=== PATIENT | male | born 1945 | race Caucasian/White ===

== ENCOUNTER → 2017-11-05 | Outpatient (CLI) | payer BC ==
[~2017-11-05] MED LIST: CIPR1TAB11 PO; LEVO112T2 PO; NRN300 PO
--- NOTE | 2017-11-05 14:12 | DIAGNOSTIC IMAGING REPORT ---
ULTRASOUND GUIDED FINE NEEDLE ASPIRATION OF LEFT LOBE THYROID NODULE CLINICAL HISTORY: Thyroid nodule. COMPARISON STUDY: Thyroid ultrasound October 21, 2017. PROCEDURE: Sonography revealed the dominant 3.7 cm left lobe thyroid nodule which contains multiple calcifications. This was targeted for biopsy. The procedure, risks and benefits were discussed with the patient including the risk of bleeding, infection and injury to adjacent structures. The patient agreed to the procedure and informed written consent was obtained. The procedure was performed by Dr. Weiss following a timeout. Skin was prepped and draped in sterile fashion and local anesthesia was achieved with 1% lidocaine. Under direct ultrasound guidance, 4 25-gauge fine needle aspirations were performed. Borderline cellularity was noted. No additional passes were performed given 4 aspirations. Patient tolerated the procedure well and no immediate complications were evident. IMPRESSION: Ultrasound guided fine needle aspiration of a 3.7 cm left lobe thyroid nodule. Electronically signed by: Saqib Weiss M.D. 11/05/2017 2:11 PM Dictated Date/Time: 11/05/2017 2:09 PM
== END | disposition home or self-care (01) ==
LOC: C.ULTR 12:37
PROVIDERS: ATTEND Physician Assistant
DX: E04.1 Nontoxic single thyroid nodule (principal)

== ENCOUNTER 2019-07-19 05:47 | Inpatient (IN) ==
[2019-07-19 06:23] LABS: Hematocrit (blood only) 38.4 % (42-52); Hemoglobin 13.3 g/dL (14.0-18.0); Mean Corpuscular Hemoglobin 33.2 pg (25-34); Mean Corpuscular Hgb Conc 34.6 g/dL (32-36); Mean Corpuscular Volume 95.8 fL (80-100); RDW Coefficient of Variation 13.2 % (11.5-14.5); Red Blood Count 4.01 M/uL (4.7-6.1); White Blood Count 4.91 K/uL (4.8-10.8)
[2019-07-19 06:40] LABS: Albumin Level 3.6 gm/dl (3.4-5.0); Calcium 9.8 mg/dl (8.5-10.1); Creatinine Clr Calc Pharmacy 47.4 ml/min; Est GFR (African American) 58.8; Est GFR (Non-African American) 50.7; Potassium 3.7 mmol/L (3.5-5.1)
[2019-07-19 06:43] LABS: Albumin Globulin Ratio 1.1 (0.9-2); Bilirubin,Total 0.9 mg/dl (0.2-1); Globulin 3.4 gm/dl (2.5-4.0)
--- NOTE | 2019-07-19 06:50 | Emergency Department Note ---
Impression & Plan Seizures, Thrombocytopenia, Low back pain ED Provider Note Provider: Sivakumar Madison MD DATE OF SERVICE: 07/19/2019 CHIEF COMPLAINT: Seizure HISTORY OF PRESENT ILLNESS: Patient is a 73-year-old gentleman with a history of hypothyroidism and seizure on Keppra presenting via ambulance today from home. Evidently around 3 AM per the patient's he woke up confused which usually means a seizure so the patient's took him to bed. EMS reports the patient had 2 seizures lasting 2 to 3 minutes each about 10 minutes apart. He received a milligram of Ativan for EMS. Patient recently intubated and recently treated at [facility] for seizures and pancreatitis about a month ago. Patient is afebrile upon arrival with complaint of some very mild lower back pain. Patient's is present and describes that yesterday he seemed a little bit more off it had no specific complaints just had trouble following some plot lines of movies. Woke up at 330AM and again try to get ready for the day she directed the bed but he just sat there and turned on the TV. Around 4 AM noted the first seizure lasting about 3 minutes generalized tonic-clonic. About a 10 out of break and then another 3-minute seizure described as grand mal. Patient was confused after that given a second seizure called EMS. They prophylactically give a dose of Ativan and brought him here for further brandy luation. Patient here is somewhat somnolent will answer a few simple questions and is a 2019. Patient states he is in [facility] in the ICU. Patient unable to give a real history about tonight's events but believes he had a seizure. Does follow simple commands. Resting with his eyes closed. Complains again of a little bit of mild lower back pain. Patient's states that he often has some musculoskeletal complaints more often his lower extremities and his back after a seizure. States compliance with home medications. No nausea vomiting, fever, URI symptoms reported. states he was on the bed and did not fall to the ground. Reviewed recent telehealth notes and [facility] discharge summary. Had a reportedly therapeutic Keppra level several weeks ago. Evidently attributed breakthrough seizures last months to poor absorption due to possible chronic pancreatitis did have some slight lipase elevation and CT findings of chronic pancreatic changes. REVIEW OF SYSTEMS: A total of 10 review of systems was obtained and negative except as stated above in the HPI. PAST MEDICAL HISTORY: As noted above MEDICATIONS: Reviewed medication list and includes Keppra, Creon, Synthroid SOCIAL HISTORY: Lives at home with , no drug use reported PHYSICAL EXAM: GENERAL: Patient resting on stretcher with eyes closed opens to verbal command Head: normocephalic and atraumatic EYES: No injection, discharge or icterus. PERRL, EOMI. NECK: Trachea midline. Supple. ENT: Mucous membranes pink and moist. Pharynx without erythema or exudate. No tongue trauma noted. LUNGS: Airway patent. No retractions. Breath sounds clear HEART: Regular rate and rhythm. No chest wall tenderness ABDOMEN: Soft and non-tender, without guarding or rebound. BACK: No midline tenderness, minimal lower back tenderness. No bilateral flank tenderness. SKIN: Acyanotic, warm, dry, without rashes EXTREMITIES: Without swelling, tenderness or deformity NEUROLOGICAL: Moving all extremities. Oriented to person and time minimally to events but not oriented to place. Speech not slurred but slow in nature. EK bpm normal sinus rhythm. No PVCs. No acute ST segment elevation or depression. Normal QTC. CONTINUOUS CARDIAC MONITORING: was ordered and showed a heart rate of 66 bpm in normal sinus rhythm Patient's hypertension was referred to the [facility] COURSE: 629 Patient was first seen and H&P performed. 804 Patient reassessed and updated. Patient was more awake at this time. Will discuss with [facility] neurology on-call. 08 discussed the patient's case with Dr. Ballesteros [facility] neurology. An extensive discussion he said it the patient felt comfortable going home he recommends starting him on Vimpat given that he is pretty much maximized his Keppra dosing at this point. 08 discussed with patient and his both our findings here today as well as discussion with neurology. Patient is quite tired and has difficulty of his eyes open during the exam. Answers questions slowly but appropriately. In discussion with them they were agreeable to start a new medication we given his morning dose of Keppra. Discussed with him options of going home versus further observation here and given his recent history and the fact that he remains "quite torres "opted towards further observation here in the hospital on this new medication. 09 discussed the case with Dr. Moreno of the [facility] Hospitalist service will evaluate the patient for further inpatient care. 1035 Patient resting in room awaiting inpatient room. Patient's laboratory studies and imaging reviewed. Differential includes Epilepsy, infection, hypoglycemia, electrolyte abnormalities, cardiac sources, intracerebral event, trauma, toxicologic, neurologic, syncope, as well as other pathologies. IMPRESSION/MEDICAL DECISION MAKING: Patient's presentation concerning for recurrent seizures unsure of exact precipitating event. According to was a bit off yesterday and particularly in the middle of the night often harbingers of his seizures. His compliance with home medications reported. Recent outpatient neurology telehealth visit. Patient did receive some Ativan but does seem quite sedate here. Moving all extremities lower suspicion for stroke given that he still sedate CT of the head was completed. Basic labs are complete as well as EKG. No leukocytosis or feve r reported not meningitic and I doubt this is acute [employer] infection. Chest x-ray without acute findings for pneumonia. Complains of little bit of lower back pain likely musculoskeletal with a benign abdomen. Lipase was checked given his recent history as well as basic laboratory studies again without significant findings. EKG without significant findings. Not acutely hypoxic here. Laboratory studies likely showed no leukocytosis and borderline anemia. Platelets are notably diminished at 86 and previous value in May was 115. No significant electrolyte abnormality. Renal function at baseline. No evidence of rhabdomyolysis. No evidence of hepatitis or biliary obstruction. Negative t roponin. Lipase is noted to be elevated 867. This value is less than May 25 when it was 1800. Given this finding in addition to a CT of the head a CT the abdomen pelvis was completed to evaluate his back pain and for any evidence of acute pancreatitis. Chronic pancreatic changes are noted on the CT without other acute significant findings. CT the head without acute pathology. Patient was reevaluated and did have improvement his mental status more awake. states he seemed pretty much back to baseline. Does not report any recent diarrheal issues and states he is been doing well on the Creon. Still complaining of some lower back discomfort. Discussed with [facility] neurology on-call. Recommendations for Vimpat load and then maintenance. Discussed with the patient options of going home on this versus continued observation here in the hospital. Patient does still seem fatigued and states he feels "quite torres "and will proceed with observation here. Given some Tylenol for his lower back discomfort. DIAGNOSIS: seizures, thrombocytopenia, lower back pain DISPOSITION: Hospitalist will evaluate Patient was agreeable with this plan. Past Med/Surg History Social History Preferred Language: Persian Communication Ability: Impaired Communication Ability Comment: alert to person, time, at bedside, some confusion [place] Required: No Beliefs That Will Affect Care: None Current Living Situation: Spouse Other Information That Helps Us Care for You: No Feels Safe at Home: Yes Safety Concerns: Feels Safe At This Time Smoking Status: Never smoker Do You Dip or Chew Tobacco: No ; Second Hand Exposure: No ; Tobacco Cessation Education Requested by Patient: No Hx Alcohol Use: No Hx Substance Use: No Allergies Allergies Allergy/AdvReac Type Severity Reaction Status Date / Time No Known Allergies Allergy Verified 07/19/19 06:28 Home Meds Home Medications Medication Instructions Recorded Confirmed levetiracetam 1,500 mg PO BID 05/26/19 07/19/19 levothyroxine 88 mcg PO DAILY 05/26/19 07/19/19 lactobacillus combination no.4 3,000 mmu cells PO DAILY 07/19/19 07/19/19 [Probiotic] [id number] [Creon] 1 cap PO TID 07/19/19 07/19/19 Results & Data (ED) Vital Signs Vital Signs - 24 hr 07/19/19 06:10 07/19/19 07:30 07/19/19 08:50 Temperature 36.4 C L Temperature Source Oral Pulse Rate 76 Pulse Rate [Apical] 65 65 Pulse Rhythm [Apical] Regular Regular Pulse Strength [Apical] Normal Normal Respiratory Rate 18 18 18 Respiratory Effort / Characteristics Non-Labored Spontaneous Non-Labored Spontaneous Respiratory Depth Normal Normal Respiratory Pattern Regular Regular Blood Pressure 124/66 Blood Pressure [Right Arm] 106/60 114/69 Blood Pressure Mean 85 Blood Pressure Mean [Right Arm] 75 84 Blood Pressure Position [Right Arm] Lying Sitting Pulse Oximetry 96 100 100 Oxygen Delivery Method Room Air Room Air Room Air Sepsis Recent Fever Within 48 Hours No Sepsis Action Taken by Nursing No Action Required 07/19/19 10:07 Temperature Temperature Source Pulse Rate Pulse Rate [Apical] 62 Pulse Rhythm [Apical] Regular Pulse Strength [Apical] Normal Respiratory Rate 18 Respiratory Effort / Characteristics Non-Labored Spontaneous Respiratory Depth Normal Respiratory Pattern Regular Blood Pressure Blood Pressure [Right Arm] 112/66 Blood Pressure Mean Blood Pressure Mean [Right Arm] 81 Blood Pressure Position [Right Arm] Sitting Pulse Oximetry 100 Oxygen Delivery Method Room Air Sepsis Recent Fever Within 48 Hours Sepsis Action Taken by Nursing Laboratory Data Result diagrams: 07/19/19 06:05 07/19/19 06:05 Lab Results 07/19/19 07/19/19 07/19/19 Range/Units 06:05 06:05 06:05 WBC 4.91 (4.8-10.8) K/uL RBC 4.01 L (4.7-6.1) M/uL Hgb 13.3 L (14.0-18.0) g/dL Hct 38.4 L (42-52) % MCV 95.8 (80-100) fL MCH 33.2 (25-34) pg MCHC 34.6 (32-36) g/dL RDW Std Deviation 46.0 (36.4-46.3) fL RDW Coeff of Estephania 13.2 (11.5-14.5) % Plt Count 86 L (130-400) K/uL MPV 11.1 H (7.4-10.4) fL Immature Gran % (Auto) 0.0 % Neut % (Auto) 84.1 % Lymph % (Auto) 10.0 % Sandoval % (Auto) 4.5 % Eos % (Auto) 1.2 % Baso % (Auto) 0.2 % Immature Gran # (Auto) 0.00 (0.00-0.02) K/uL Neut # (Auto) 4.13 (1.4-6.5) K/uL Lymph # (Auto) 0.49 L (1.2-3.4) K/uL Sandoval # (Auto) 0.22 (0.11-0.59) K/uL Eos # (Auto) 0.06 (0-0.5) K/uL Baso # (Auto) 0.01 (0-0.2) K/uL Platelet Estimate Decreased L (Normal) Sodium 141 (136-145) mmol/L Potassium 3.7 (3.5-5.1) mmol/L Chloride 108 H (98-107) mmol/L Carbon Dioxide 26 (21-32) mmol/L Anion Gap 7.0 (3-11) BUN 18 (7-18) mg/dl Creatinine 1.38 (0.6-1.4) mg/dl Est Cr Clr Drug Dosing 47.4 ml/min Est GFR ( Amer) 58.8 Est GFR (Non-Af Amer) 50.7 BUN/Creatinine Ratio 13.0 (10-20) Glucose 120 H (70-99) mg/dl Calcium 9.8 (8.5-10.1) mg/dl Total Bilirubin 0.9 (0.2-1) mg/dl AST 21 (15-37) U/L ALT 24 (12-78) U/L Alkaline Phosphatase 84 (45-117) U/L Total Creatine Kinase (39-308) U/L Troponin I < 0.015 (0-0.045) ng/ml Total Protein 7.0 (6.4-8.2) gm/dl Albumin 3.6 (3.4-5.0) gm/dl Globulin 3.4 (2.5-4.0) gm/dl Albumin/Globulin Ratio 1.1 (0.9-2) Lipase 867 H (73-393) U/L Urine Color Urine Appearance (Clear) Urine pH (4.5-7.5) Ur Specific [place] (1.000-1.030) Urine Protein (Negative) Urine Glucose (UA) (Negative) Urine Ketones (Negative) Urine Blood (Negative) Urine Nitrite (Negative) Urine Bilirubin (Negative) Urine Urobilinogen (Negative) Ur Leukocyte Esterase (Negative) Urine WBC (Auto) (0-5) /hpf Urine RBC (Auto) (0-4) /hpf U Hyaline Cast (Auto) (0-5) /lpf U Epithel Cells (Auto) (0-5) /lpf Urine Bacteria (Auto) (Negative) 07/19/19 07/19/19 Range/Units 06:05 07:50 WBC (4.8-10.8) K/uL RBC (4.7-6.1) M/uL Hgb (14.0-18.0) g/dL Hct (42-52) % MCV (80-100) fL MCH (25-34) pg MCHC (32-36) g/dL RDW Std Deviation (36.4-46.3) fL RDW Coeff of Estephania (11.5-14.5) % Plt Count (130-400) K/uL MPV (7.4-10.4) fL Immature Gran % (Auto) % Neut % (Auto) % Lymph % (Auto) % Sandoval % (Auto) % Eos % (Auto) % Baso % (Auto) % Immature Gran # (Auto) (0.00-0.02) K/uL Neut # (Auto) (1.4-6.5) K/uL Lymph # (Auto) (1.2-3.4) K/uL Sandoval # (Auto) (0.11-0.59) K/uL Eos # (Auto) (0-0.5) K/uL Baso # (Auto) (0-0.2) K/uL Platelet Estimate (Normal) Sodium (136-145) mmol/L Potassium (3.5-5.1) mmol/L Chloride (98-107) mmol/L Carbon Dioxide (21-32) mmol/L Anion Gap (3-11) BUN (7-18) mg/dl Creatinine (0.6-1.4) mg/dl Est Cr Clr Drug Dosing ml/min Est GFR ( Amer) Est GFR (Non-Af Amer) BUN/Creatinine Ratio (10-20) Glucose (70-99) mg/dl Calcium (8.5-10.1) mg/dl Total Bilirubin (0.2-1) mg/dl AST (15-37) U/L ALT (12-78) U/L Alkaline Phosphatase (45-117) U/L Total Creatine Kinase 82 (39-308) U/L Troponin I (0-0.045) ng/ml Total Protein (6.4-8.2) gm/dl Albumin (3.4-5.0) gm/dl Globulin (2.5-4.0) gm/dl Albumin/Globulin Ratio (0.9-2) Lipase (73-393) U/L Urine Color Yellow Urine Appearance Clear (Clear) Urine pH 5.5 (4.5-7.5) Ur Specific [place] 1.017 (1.000-1.030) Urine Protein Trace H (Negative) Urine Glucose (UA) Negative (Negative) Urine Ketones Negative (Negative) Urine Blood Negative (Negative) Urine Nitrite Negative (Negative) Urine Bilirubin Negative (Negative) Urine Urobilinogen Negative (Negative) Ur Leukocyte Esterase Negative (Negative) Urine WBC (Auto) 1-5 (0-5) /hpf Urine RBC (Auto) 0-4 (0-4) /hpf U Hyaline Cast (Auto) 1-5 (0-5) /lpf U Epithel Cells (Auto) 0-5 (0-5) /lpf Urine Bacteria (Auto) Negative (Negative) Administered Medications Ioversol (Optiray 320 100ml) 93 ml IV ONCE PRN PRN Reason: Interaction Checking Stop: 07/23/19 07:35 Last Admin: 07/19/19 07:37 Dose: 93 ml Documented by: [id number] Discontinued Medications Acetaminophen (Tylenol) 1,000 mg PO NOW STA Stop: 07/19/19 08:34 Last Admin: 07/19/19 08:56 Dose: 1,000 mg Documented by: [id number] Lacosamide 200 mg/ Sodium (Chloride) 70 mls @ 140 mls/hr IV ONCE ONE Stop: 07/19/19 08:35 Last Admin: 07/19/19 08:56 Dose: 140 mls/hr Documented by: [id number] Levetiracetam (Keppra) 1,500 mg PO ONE ONE Stop: 07/19/19 08:34 Last Admin: 07/19/19 08:57 Dose: 1,500 mg Documented by: [id number] Discharge Plan Visit Data Chief Complaint: Seizure Stated Complaint: Seizure ED Provider: Sivakumar Madison Discharge Problem: Seizures, Thrombocytopenia, Low back pain Forms Stand Alone Forms: [facility] Prescriptions Prescriptions: No Action Creon 24,000-76,000 -120,000 unit Capsule,Delayed Release(Dr/Ec) 1 cap PO TID RF: 0 Probiotic 3 billion cell Capsule 3,000 mmu cells PO DAILY RF: 0 levothyroxine 88 mcg tablet 88 mcg PO DAILY RF: 0 levetiracetam 1,000 mg tablet 1,500 mg PO BID RF: 0 Discharge Problem: Low back pain Qualifiers: Chronicity: acute Back pain laterality: bilateral Sciatica presence: without sciatica Qualified Code(s): M54.5 - Low back pain
[2019-07-19 06:54] LABS: Mean Platelet Volume 11.1 fL (7.4-10.4); Platelet Count 86 K/uL (130-400)
[2019-07-19 06:55] LABS: Basophils # (auto) 0.01 K/uL (0-0.2); Basophils % (auto) 0.2 %; Eosinophils # (auto) 0.06 K/uL (0-0.5); Eosinophils % (auto) 1.2 %; Lymphocytes # (auto) 0.49 K/uL (1.2-3.4); Monocytes # (auto) 0.22 K/uL (0.11-0.59); Monocytes % (auto) 4.5 %; Neutrophils # (auto) 4.13 K/uL (1.4-6.5); Neutrophils % (auto) 84.1 %; Platelet Estimate Decreased (Normal)
--- NOTE | 2019-07-19 06:58 | XRay Report ---
XR chest 1V portable CLINICAL HISTORY: seizure COMPARISON STUDY: Chest radiograph June 02, 2019. FINDINGS: Lung volumes are normal. Lungs are clear. There is no pneumothorax or pleural effusion. Car diac size is normal. Mediastinal contours are normal. There is no evidence for pulmonary edema. IMPRESSION: No acute cardiopulmonary findings. ACT 112: Negative or not required by law. Electronically signed by: Saqib Weiss M.D. 07/19/2019 6:57 AM
[2019-07-19 07:00] LABS: Lipase 867 U/L (73-393); Troponin I < 0.015 ng/ml (0-0.045)
[2019-07-19] MEDS ORDERED: IOVERSOL 100ml IV PRN (07:36)
--- NOTE | 2019-07-19 07:44 | CT Scan Report ---
CT OF THE HEAD WITHOUT CONTRAST CLINICAL HISTORY: seizure, confusion COMPARISON STUDY: Head CT and CTA of the head June 02, 2019. TECHNIQUE: Helical axial images of the head were obtained without IV contrast. Automated exposure con trol was utilized for the study. A dose lowering technique was utilized adhering to the principles o f ALARA. FINDINGS: No acute intracranial hemorrhage, midline shift or mass effect is present. The ventricular system is unremarkable. The basilar cisterns are patent. White matter hypodensities are unchanged and suggest small vessel disease. No extra-axial collections are present. There are no findings to sugge st acute dural sinus thrombosis or acute territorial infarct. No significant calvarial abnormalities are present. Visualized portions of the sinuses and mastoid air cells are clear. IMPRESSION: No acute intracranial findings. ACT 112: Negative or not required by law. Electronically signed by: Saqib Weiss M.D. 07/19/2019 7:43 AM
--- NOTE | 2019-07-19 08:01 | CT Scan Report ---
CT OF THE ABDOMEN AND PELVIS WITH CONTRAST CLINICAL HISTORY: elevated lipase, seizure, low back pain COMPARISON STUDY: CT of the abdomen and pelvis May 26, 2019. TECHNIQUE: Following IV administration of 93 mL of Optiray-320, axial images of the abdomen and pelvi s were obtained from the lung bases to the proximal femurs. Images were reviewed in the axial, sagitt al, and coronal planes. IV contrast was administered without complication. Automated exposure contro l was utilized for the study. A dose lowering technique was utilized adhering to the principles of A RIMMA. CT DOSE: 1192.48 mGy.cm FINDINGS: This exam is moderately compromised by motion artifact. Lung bases are unremarkable. No pne umatosis, free air or portal venous gas is present. Mild biliary ductal dilatation is likely related to previous cholecystectomy. No hepatic lesions are present. There is mild splenomegaly. The adrenal glands and kidneys are unremarkable. Numerous pancreatic parenchymal calcifications are noted. No per ipancreatic infiltration or fluid is noted although sensitivity is diminished on this unenhanced exam . A few cystic foci within the pancreatic head measure up to 1.6 cm. There is no definite pancreatic ductal dilatation. There is no evidence for a bowel obstruction. A moderate amount stool is noted wit hin the colon. No ascites is present. No lymphadenopathy. Prostate is moderately enlarged. No acute l umbar spine or pelvic fracture is identified. IMPRESSION: 1. Trace pelvic ascites. Exam mildly compromised by motion artifact. 2. Pancreatic parenchymal calcifications suggestive of chronic pancreatitis. No peripancreatic infilt ration or fluid collections. A few cystic foci within the pancreatic head may reflect dilated side br anches or side branch IPMNs. 3. No bowel obstruction. 4. Mild splenomegaly. ACT 112: Negative or not required by law. Electronically signed by: Saqib Weiss M.D. 07/19/2019 8:00 AM
[2019-07-19 08:02] LABS: Appearance Urine Clear (Clear); Bacteria Urine Automated Negative (Negative); Bilirubin Urine Negative (Negative); Blood Urine Negative (Negative); Color Urine Yellow; Epithelial Cell Urine Auto 0-5 /lpf (0-5); Glucose Urine UA Negative (Negative); Ketones Urine Negative (Negative); Leukocyte Esterase Urine Negative (Negative); Nitrite Urine Negative (Negative); Protein Urine Trace (Negative); RBC Urine Automated 0-4 /hpf (0-4); Specific Gravity Urine 1.017 (1.000-1.030); Urobilinogen Urine Negative (Negative); pH Urine 5.5 (4.5-7.5)
[2019-07-19] MEDS ORDERED: ACETAMINOPHEN 500 MG TAB PO STA (08:33)
[2019-07-19] MEDS ORDERED: levETIRAcetam 500 MG TAB PO ONE (08:33)
[2019-07-19] MEDS ORDERED: LACOSAMIDE 200 MG in SODIUM CHLORIDE 0.9% 50 ML IV ONE (08:34)
--- NOTE | 2019-07-19 09:38 | History & Physical Report ---
Date of Service July 19, 2019 Assessment & Plan (1) Seizures: Breakthrough seizures H/O seizure disorder CT head:No acute intracranial findings. Keppra levels pending Received a loading dose of Vimpat in ED Continue Keppra 1500 mg twice a day Start IV Vimpat 100 mg twice a day Nephrology consulted Fall, aspiration, seizure precautions IV Ativan PRN for seizures Chronic thrombocytopenia Unclear etiology Splenomegaly noted on CT ABD No bleeding issues Monitor platelets Chronic pancreatitis Chronic diarrhea No signs of acute pancreatitis on CT Continue Creon Follows FODMAP diet Plan for endoscopy in August as outpatient Elevate Lactate Levels Likely secondary to seizure No obvious source of infection Levels normalized with IV fluids CKD III Cr at baseline Monitor renal function Avoid nephrotoxic agents as able Hypothyroidism: Continue Levothyroxine Obstructive sleep apnea Continue CPAP at bedtime H/O memory loss/mild neurocognitive disorder As per records Plan to get neurocognitive testing as outpatient DVT Px: Heparin SQ Code Status Full Code Disposition Plan to discharge home when stable History of Present Illness Chief Complaint: Seizure Primary Care Provider: Eliazar Falcon DO Patient is a 73-year-old male with history of seizure disorder, CKD III, chronic pancreatitis, hypothyroidism, obstructive sleep apnea on CPAP, H/O memory loss/mild neurocognitive disorder and other problems presents with history of altered mental status. Most of the history is obtained from patient's , ER physician and old records. Patient was noted to be transiently confused yesterday while watching TV. Today morning at around 3 AM, patient woke up confused and his noted him to have seizure-like activity which lasted for about 3 minutes. Patient lost consciousness after the episode as per his . She noticed him to have a another seizure after 10 minutes which again lasted for about 3 minutes. Patient was noted to be shaking all his extremities during the episodes. He did not have urinary incontinence. No known history of fall, head trauma, tongue bite, frothing, fever, chills, chest pain, shortness of breath, dizziness, nausea, abdominal pain, headache, change in vision. Family informs that patient missed his Keppra morning dose 3 days ago but otherwise is complaint with medications. Patient did report to have mild lower back pain after the episode and was and was repeating words as per family. Patient received a dose of Ativan given by EMS in route to the hospital. While in ED patient is drowsy but was able to answer questions appropriately. He denied any focal weakness, numbness, dizziness, headache, change in vision and is oriented. He was recently transferred from [facility] to [facility] for management of status epilepticus. Patient's Keppra dose was increased to 1500 mg twice a day as he was thought to have poor absorption from chronic diarrhea. Patient's informs that his diarrhea improved after being started on Creon for chronic pancreatitis. Patient received Keppra and a loading dose of Vimpat while in ED. Allergies Allergy/AdvReac Type Severity Reaction Status Date / Time No Known Allergies Allergy Verified 07/19/19 06:28 Home Medications Home Medications Medication Instructions Recorded Confirmed Type levetiracetam 1,500 mg PO BID 05/26/19 07/19/19 History levothyroxine 88 mcg PO DAILY 05/26/19 07/19/19 History lactobacillus combination no.4 3,000 mmu cells PO DAILY 07/19/19 07/19/19 History [Probiotic] [id number] [Creon] 1 cap PO TID 07/19/19 07/19/19 History Past Med/Surg History Medical History Cholecystectomy planned Family history non-contributory Seizure (Resolved) Thrombocytopenia (Acute) UTI (urinary tract infection) (Acute) Surgical History History of cholecystectomy (Resolved) Family History Mother ALS (amyotrophic lateral sclerosis) Social History Preferred Language: Wallisian Communication Ability: Impaired Communication Ability Comment: alert to person, time, at bedside, some confusion 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 Beliefs That Will Affect Care: None Current Living Situation: Spouse Other Information That Helps Us Care for You: No Feels Safe at Home: Yes Safety Concerns: Feels Safe At This Time Smoking Status: Never smoker Do You Dip or Chew Tobacco: No ; Second Hand Exposure: No ; Tobacco Cessation Education Requested by Patient: No Hx Alcohol Use: No Hx Substance Use: No Review of Systems Review of Systems: All systems reviewed & are unremarkable except as noted in HPI & below Physical Exam Physical Exam: Physical Exam: Vitals signs as noted above General Appearance:Moderately built and nourished, no apparent distress Head: normocephalic, Atraumatic Eyes: normal inspection, EOMI Neck: supple, Trachea midline Respiratory/Chest: Normal breath sounds, CTA, No accessory muscle use Cardiovascular: S1, S2, No murmur Abdomen/GI:Soft, Non tender, Bowel sounds present Extremities/Musculoskelatal:normal inspection, no edema Neurologic/Psych:grossly no focal neurological deficits, drowsy, oriented Skin: normal color, warm Results & Data Results & Data ([facility]) Vital Signs (Past 12 Hours) Vital Signs Temp Pulse Pulse Resp BP BP Pulse Ox 07/19/19 07:30 65 18 106/60 100 07/19/19 06:10 36.4 C L 76 18 124/66 96 Laboratory Results Short CBC 07/19/19 Range/Units 06:05 WBC 4.91 (4.8-10.8) K/uL Hgb 13.3 L (14.0-18.0) g/dL Hct 38.4 L (42-52) % Plt Count 86 L (130-400) K/uL BMP 07/19/19 06:05 Sodium 141 Potassium 3.7 Chloride 108 H Carbon Dioxide 26 BUN 18 Creatinine 1.38 Glucose 120 H Calcium 9.8 Cardiac Enzymes 07/19/19 07/19/19 Range/Units 06:05 06:05 Total Creatine Kinase 82 (39-308) U/L Troponin I < 0.015 (0-0.045) ng/ml Liver Function 07/19/19 Range/Units 06:05 Total Bilirubin 0.9 (0.2-1) mg/dl AST 21 (15-37) U/L ALT 24 (12-78) U/L Alkaline Phosphatase 84 (45-117) U/L Albumin 3.6 (3.4-5.0) gm/dl Urine 07/19/19 Range/Units 07:50 Urine Color Yellow Urine Appearance Clear (Clear) Urine pH 5.5 (4.5-7.5) Ur Specific [place] 1.017 (1.000-1.030) Urine Protein Trace H (Negative) Urine Glucose (UA) Negative (Negative) Diagnostic Findings CT ABD: 1. Trace pelvic ascites. Exam mildly compromised by motion artifact. 2. Pancreatic parenchymal calcifications suggestive of chronic pancreatitis. No peripancreatic infiltration or fluid collections. A few cystic foci within the pancreatic head may reflect dilated side branches or side branch IPMNs. 3. No bowel obstruction. 4. Mild splenomegaly. Head CT: No acute intracranial findings. Medications Administered Home Medications Medication Instructions Recorded Confirmed levetiracetam 1,500 mg PO BID 05/26/19 07/19/19 levothyroxine 88 mcg PO DAILY 05/26/19 07/19/19 lactobacillus combination no.4 3,000 mmu cells PO DAILY 07/19/19 07/19/19 [Probiotic] [id number]-[id number] [Creon] 1 cap PO TID 07/19/19 07/19/19 ECG Additional Comments: EKG:NSR, QTc 425. No significant change from prior EKG.
[2019-07-19] MEDS ORDERED: NSS + 20MEQ KCL 20 MEQ/1,000 ML BAG IV ONE (11:25)
[2019-07-19] MEDS ORDERED: ACETAMINOPHEN 325 MG TAB PO PRN (11:25)
[2019-07-19] MEDS ORDERED: LORazepam 1 MG/2 ML VIAL IV PRN (11:25)
[2019-07-19] MEDS ORDERED: ONDANSETRON INJ 2 MG/ML 2 ML VIAL IV PRN (11:25)
[2019-07-19] MEDS: LACTOBACILLUS ACIDOPHILUS (FLORANEX) TAB PO SCH ×2 (12:18→16:58)
[2019-07-19] MEDS: PANCREAZE (LIPASE 10,500U) CAP PO SCH ×2 (12:18→16:58)
--- NOTE | 2019-07-19 13:55 | Neurology Consultation ---
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 CT head noncontrast was negative. CMP and CBC were rather unremarkable. He does have a history of pancreatitis and lipase was elevated. Agree with starting Vimpat 100 mg twice daily for breakthrough seizure. Continue current dose of Keppra 1500 mg twice daily. Seizure precautions and every 4 neuro checks while inpatient. 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 He was found around 3 AM per the patient's he woke up confused which usually means a seizure so the patient's took him to bed. EMS reports the patient had 2 seizures lasting 2 to 3 minutes each about 10 minutes apart. He received a milligram of Ativan for EMS. Patient was recently seen by telemedicine visit by Dr. Osman on June 17. Recommended to continue current dose of Keppra as well as order neuropsychiatric evaluation for cognitive impairment. Case was discussed with the emergency room department this morning. Decision was made for observation with starting Vimpat. Allergies Allergy/AdvReac Type Severity Reaction Status Date / Time No Known Allergies Allergy Verified 07/19/19 06:28 Home Medications Home Medications Medication Instructions Recorded Confirmed Type levetiracetam 1,500 mg PO BID 05/26/19 07/19/19 History levothyroxine 88 mcg PO DAILY 05/26/19 07/19/19 History lactobacillus combination no.4 3,000 mmu cells PO DAILY 07/19/19 07/19/19 History [Probiotic] hoefcm-bkqeisbi-kvvvibp [Creon] 1 cap PO TID 07/19/19 07/19/19 History Patient History Medical History Cholecystectomy planned Family history non-contributory Seizure (Resolved) Thrombocytopenia (Acute) UTI (urinary tract infection) (Acute) Surgical History History of cholecystectomy (Resolved) Family History Mother ALS (amyotrophic lateral sclerosis) Social History Preferred Language: Finnish Communication Ability: Impaired Communication Ability Comment: alert to person, time, at bedside, some confusion 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 Oriented to person and place. Following commands. Speech is soft. He can repeat. Tongie midline wth no abrasion. EOMI. Street negative. No tremor or ataxia with finger to nose. Results & Data Vital Signs (Past 12 Hours) Vital Signs Temp Pulse Pulse Resp BP BP Pulse Ox 07/19/19 12:37 36.7 C 65 16 110/64 97 07/19/19 12:04 63 07/19/19 11:25 36.8 C 75 20 118/71 96 07/19/19 10:07 62 18 112/66 100 07/19/19 08:50 65 18 114/69 100 07/19/19 07:30 65 18 106/60 100 07/19/19 06:10 36.4 C L 76 18 124/66 96
[2019-07-19] MEDS: levETIRAcetam 500 MG TAB PO SCH (20:24)
[2019-07-19] MEDS: HEPARIN SOD 5,000 UNIT/0.5 ML VIAL SQ SCH (20:24)
[2019-07-19] MEDS: LACOSAMIDE 100 MG in SODIUM CHLORIDE 0.9% 50 ML IV SCH (20:26)
--- NOTE | 2019-07-19 23:01 | Electrocardiogram Report ---
Test Reason : Blood Pressure : / mmHG Vent. Rate : 071 BPM Atrial Rate : 071 BPM P-R Int : 164 ms QRS Dur : 100 ms QT Int : 392 ms P-R-T Axes : 078 070 049 degrees QTc Int : 425 ms Normal sinus rhythm Normal ECG When compared with ECG of 02-JUN-2019 06:22, No significant change was found Confirmed by Abhishek Tapia ([id number]) on 07/19/2019 11:01:56 PM Referred By: Confirmed By:Abhishek Tapia
[2019-07-20 05:54] LABS: Hematocrit (blood only) 35.3 % (42-52); Hemoglobin 12.1 g/dL (14.0-18.0); Mean Corpuscular Hemoglobin 32.7 pg (25-34); Mean Corpuscular Hgb Conc 34.3 g/dL (32-36); Mean Corpuscular Volume 95.4 fL (80-100); RDW Coefficient of Variation 13.1 % (11.5-14.5); RDW Standard Deviation 45.3 fL (36.4-46.3); White Blood Count 5.84 K/uL (4.8-10.8)
[2019-07-20 06:19] LABS: Mean Platelet Volume 11.6 fL (7.4-10.4); Platelet Count 83 K/uL (130-400)
[2019-07-20 06:22] LABS: BUN Creatinine Ratio 16.6 (10-20); Calcium 9.4 mg/dl (8.5-10.1); Creatinine Clr Calc Pharmacy 54.2 ml/min; Est GFR (African American) 70.3; Est GFR (Non-African American) 60.7; Potassium 3.9 mmol/L (3.5-5.1)
[2019-07-20] MEDS ORDERED: LEVOTHYROXINE SODIUM 88 MCG TABLET PO SCH (06:30)
[2019-07-20] MEDS: LACTOBACILLUS ACIDOPHILUS (FLORANEX) TAB PO SCH ×2 (08:27→12:07)
[2019-07-20] MEDS: HEPARIN SOD 5,000 UNIT/0.5 ML VIAL SQ SCH (08:28)
[2019-07-20] MEDS: PANCREAZE (LIPASE 10,500U) CAP PO SCH ×2 (08:28→12:07)
[2019-07-20] MEDS: levETIRAcetam 500 MG TAB PO SCH (08:28)
[2019-07-20] MEDS: LACOSAMIDE 100 MG in SODIUM CHLORIDE 0.9% 50 ML IV SCH (08:50)
--- NOTE | 2019-07-20 11:29 | Hospitalist Progress Note ---
Date of Service July 20, 2019 Assessment & Plan (1) Seizures: Breakthrough seizures H/O seizure disorder CT head:No acute intracranial findings. Keppra levels pending Received a loading dose of Vimpat in ED Continue Keppra 1500 mg twice a day Started on Vimpat 100 mg twice a day Appreciate Neurology Input Fall, aspiration, seizure precautions Needs follow-up with neurology upon discharge Chronic thrombocytopenia Unclear etiology Splenomegaly noted on CT ABD No bleeding issues Monitor platelets Follow up as outpatient Chronic pancreatitis Chronic diarrhea No signs of acute pancreatitis on CT Continue Creon Follows FODMAP diet Plan for endoscopy in August as outpatient Denies any abdominal pain Elevate Lactate Levels Likely secondary to seizure No obvious source of infection Levels normalized with IV fluids CKD III Cr at baseline Monitor renal function Avoid nephrotoxic agents as able Hypothyroidism: Continue Levothyroxine Obstructive sleep apnea Continue CPAP at bedtime H/O memory loss/mild neurocognitive disorder As per records Plan to get neurocognitive testing as outpatient DVT Px: Heparin SQ Code Status Full Code Disposition Plan to discharge home today Admission and Anticipated Discharge Date Admission Date: July 19, 2019 Subjective Patient is seen and examined at bedside Feels much improved today Denies any headache, dizziness, change in vision, chest pain, shortness of breath, abdominal pain No seizure activity since hospitalization Discussed with neurology today Eager to get discharged today Review of Systems Review of Systems: All systems reviewed & are unremarkable except as noted in HPI & below Physical Exam Physical Exam: Physical Exam: Vitals signs as noted above General Appearance:Moderately built and nourished, no apparent distress Head: normocephalic, Atraumatic Eyes: normal inspection, EOMI Neck: supple, Trachea midline Respiratory/Chest: Normal breath sounds, CTA, No accessory muscle use Cardiovascular: S1, S2, No murmur Abdomen/GI:Soft, Non tender, Bowel sounds present Extremities/Musculoskelatal:normal inspection, no edema Neurologic/Psych:AAOX3, grossly no focal neurological deficits Skin: normal color, warm Results & Data Results & Data ([facility]) Vital Signs (Past 12 Hours) Vital Signs Temp Pulse Pulse Resp BP Pulse Ox 07/20/19 07:37 36.4 C L 69 18 110/66 97 07/20/19 07:14 62 07/20/19 04:19 36.4 C L 67 18 125/67 97 Laboratory Results Short CBC 07/20/19 Range/Units 05:05 WBC 5.84 (4.8-10.8) K/uL Hgb 12.1 L (14.0-18.0) g/dL Hct 35.3 L (42-52) % Plt Count 83 L (130-400) K/uL BMP 07/20/19 05:05 Sodium 140 Potassium 3.9 Chloride 107 Carbon Dioxide 27 BUN 20 H Creatinine 1.19 Glucose 81 Calcium 9.4
--- NOTE | 2019-07-20 11:46 | Discharge Summary ---
Date of Service July 20, 2019 Admission HPI Per Admitting Provider Patient is a 73-year-old male with history of seizure disorder, CKD III, chronic pancreatitis, hypothyroidism, obstructive sleep apnea on CPAP, H/O memory loss/mild neurocognitive disorder and other problems presents with history of altered mental status. Most of the history is obtained from patient's , ER physician and old records. Patient was noted to be transiently confused yesterday while watching TV. Today morning at around 3 AM, patient woke up confused and his noted him to have seizure-like activity which lasted for about 3 minutes. Patient lost consciousness after the episode as per his . She noticed him to have a another seizure after 10 minutes which again lasted for about 3 minutes. Patient was noted to be shaking all his extremities during the episodes. He did not have urinary incontinence. No known history of fall, head trauma, tongue bite, frothing, fever, chills, chest pain, shortness of breath, dizziness, nausea, abdominal pain, headache, change in vision. Family informs that patient missed his Keppra morning dose 3 days ago but otherwise is complaint with medications. Patient did report to have mild lower back pain after the episode and was and was repeating words as per family. Patient received a dose of Ativan given by EMS in route to the hospital. While in ED patient is drowsy but was able to answer questions appropriately. He denied any focal weakness, numbness, dizziness, headache, change in vision and is oriented. He was recently transferred from [facility] to [facility], for management of status epilepticus. Patient's Keppra dose was increased to 1500 mg twice a day as he was thought to have poor absorption from chronic diarrhea. Patient's informs that his diarrhea improved after being started on Creon for chronic pancreatitis. Patient received Keppra and a loading dose of Vimpat while in ED. Admission Exam Per Admitting Provider Physical Exam: Vitals signs as noted above General Appearance:Moderately built and nourished, no apparent distress Head: normocephalic, Atraumatic Eyes: normal inspection, EOMI Neck: supple, Trachea midline Respiratory/Chest: Normal breath sounds, CTA, No accessory muscle use Cardiovascular: S1, S2, No murmur Abdomen/GI:Soft, Non tender, Bowel sounds present Extremities/Musculoskelatal:normal inspection, no edema Neurologic/Psych:grossly no focal neurological deficits, drowsy, oriented Skin: normal color, warm Principal Diagnosis Breakthrough seizures Chronic thrombocytopenia Discharge Data Allergies Allergy/AdvReac Type Severity Reaction Status Date / Time No Known Allergies Allergy Verified 07/19/19 06:28 Consultations 07/19/19 09:41 ED Decision to Admit Stat 07/19/19 11:25 Consult Neurology Routine Procedures Performed CT head: No acute intracranial findings. CT ABD: 1. Trace pelvic ascites. Exam mildly compromised by motion artifact. 2. Pancreatic parenchymal calcifications suggestive of chronic pancreatitis. No peripancreatic infiltration or fluid collections. A few cystic foci within the pancreatic head may reflect dilated side branches or side branch IPMNs. 3. No bowel obstruction. 4. Mild splenomegaly. Ordered Studies 07/19/19 06:40 CT head/brain wo con Stat 07/19/19 07:13 CT abd pelvis IV con only Stat Hospital Course (1) Seizures: Breakthrough seizures H/O seizure disorder CT head:No acute intracranial findings. Keppra levels pending Received a loading dose of Vimpat in ED Continue Keppra 1500 mg twice a day Started on Vimpat 100 mg twice a day Appreciate Neurology Input Fall, aspiration, seizure precautions Needs follow-up with neurology upon discharge Chronic thrombocytopenia Unclear etiology Splenomegaly noted on CT ABD No bleeding issues Monitor platelets Follow up as outpatient Chronic pancreatitis Chronic diarrhea No signs of acute pancreatitis on CT Continue Creon Follows FODMAP diet Plan for endoscopy in August as outpatient Denies any abdominal pain Elevate Lactate Levels Likely secondary to seizure No obvious source of infection Levels normalized with IV fluids CKD III Cr at baseline Monitor renal function Avoid nephrotoxic agents as able Hypothyroidism: Continue Levothyroxine Obstructive sleep apnea Continue CPAP at bedtime H/O memory loss/mild neurocognitive disorder As per records Plan to get neurocognitive testing as outpatient DVT Px: Heparin SQ Code Status Full Code Disposition Plan to discharge home today Total Time Total Time Spent Total Time Spent (In Minutes): 38 minutes Total Time Includes: Examination of the Patient, Discharge Planning, Medication Reconciliation, Communication With Other Providers and Other Discharge Plan Discharge Items Patient Disposition: Home - Self-Care Reason For Visit: Seizures Discharge Diagnosis: Recurrent Seizure Thrombocytopenia Activity: Resume your previous activity Exercise/Sports: Gradually increase as tolerated Driving/Machine Use: Driving is not permitted until cleared by your Neurologist. Non-emergency contact: Primary Care Provider and Neurologist Call non-emergency contact if: you have any medication questions, your symptoms worsen, your pain is not controlled, your pain is worsening, your pain is unusual for you, your pain is concerning for you and you have a fever Follow-up/Referrals: Eliazar Falcon, [Primary Care Provider] - 07/28/19 10:40 am (07/28/2019 10:40 AM Shaheed Vaca III, MD General Internal Medicine [facility] ) Diet: Heart Healthy and Lactose Intolerant Addtl Attending Provider Instructions: Follow-up with your primary care physician Dr. Vaca on July 27, 2019 at 11:25 AM Follow-up with your neurologist Dr. Nico Carver as advised Your platelet count has been noted to be low on current admission and previously as well. Discussed with your physician for further work-up as outpatient Your Keppra levels are pending at the time of discharge. Follow-up with your physician for results. Take medications regularly as advised. New Medications: Lacosamide (Vimpat) 100mg Twice a day Seek immediate medical attention if your symptoms reoccur or worsen Pending Studies at Discharge: Yes Studies:: Levetiracetam Levels Stand-Alone Forms: [facility] [employer], Smoking Cessation Medications and DC Order Prescriptions: New lacosamide 100 mg tablet 100 mg PO BID Qty: 60 RF: 1 Continued Creon 24,000-76,000 -120,000 unit Capsule,Delayed Release(Dr/Ec) 1 cap PO TID RF: 0 Probiotic 3 billion cell Capsule 3,000 mmu cells PO DAILY RF: 0 levothyroxine 88 mcg tablet 88 mcg PO DAILY RF: 0 levetiracetam 1,000 mg tablet 1,500 mg PO BID RF: 0 Discharge Orders: Discharge Order (Routine); Ordered 07/20/19 Ordered By: Elmer Moreno Admission Data Admit Date/Time: 07/19/19 10:28 Attending Provider: Elmer Moreno Admit Provider: Elmer Moreno Primary Care Provider: Eliazar Falcon Other Providers: Elmer Moreno ; Nico Ballesteros Other Interventions: Discharge Summary Assessment (RN) Last Done: 07/20/19 11:49 DC Date/Time DO NOT enter until pt leaves facility: 07/20/19 13:58
== END 2019-07-20 13:58 | disposition home or self-care (01) | DRG 101 ==
LOC: ED 05:47 → 2N 10:28